=== PATIENT | male | born 1950 | race Caucasian/White ===

== ENCOUNTER 2018-07-19 11:52 | Emergency (ER) | payer MEDICARE, OTHER ==
--- NOTE | 2018-07-19 12:58 | ER Document Report ---
ED General - General Chief Complaint: Facial Injury Stated Complaint: FACE PAIN Time Seen by Provider: 07/19/18 12:01 Notes: Patient with a history of right-sided trigeminal neuralgia for many years, currently under the care of Dr. Kenny at [facility]. Complaining of severe pain of the right side of his face this morning. EMS was called and they gave the patient 100 mcg of fentanyl IV and 4 mg of Zofran and the patient got considerable relief of his pain. Patient has had surgery several times and gets temporary relief, the last time for a couple of years but then it flares back up, as it has been for the past couple of weeks, occurring an average of every other day. He just saw Dr. Kenny at [facility] a week ago who adjusted his medications by increasing his Trileptal to 3 times a day from usual 2 times a day. Patient also taking Cymbalta, gabapentin, Keppra, and 15 mg morphine pills for his condition. They sometimes do not seem to help and that is why EMS was called. Patient had a biopsy of lesions on his forehead earlier this morning. Band-Aid is currently in place there. Has not been sick in any other way recently. No nausea or vomiting. No fevers. TRAVEL OUTSIDE OF THE [place] IN LAST 30 DAYS: No - Related Data Allergies/Adverse Reactions: No Known Allergies Allergy (Verified 05/25/16 11:22) Past Medical History - Social History Smoking Status: Current Every Day Smoker Family History: Reviewed & Not Pertinent Patient has suicidal ideation: No Patient has homicidal ideation: No - Past Medical History Cardiac Medical History: Reports: Hx Hypercholesterolemia Past Surgical History: Reports: Other - Multiple surgeries for his trigeminal neuralgia. His - Immunizations Hx Diphtheria, Pertussis, Tetanus Vaccination: Yes Review of Systems - Review of Systems Notes: REVIEW OF SYSTEMS: CONSTITUTIONAL : Denies fever. Appears comfortable at this time. EENT: Denies eye, ear, nose or mouth or throat pain or other symptoms. CARDIOVASCULAR: Denies chest pain. RESPIRATORY: Denies cough, chest congestion, or shortness of breath. GASTROINTESTINAL: Denies abdominal pain or nausea, vomiting, or diarrhea. GENITOURINARY: Denies difficulty or painful urinating, urinary frequency, blood in urine. MUSCULOSKELETAL: Denies back or neck pain. Denies joint pain or swelling. SKIN: Denies rash or skin lesions. NEUROLOGICAL: Denies LOC or altered mental status. Denies headache. Denies sensory loss or motor deficits. ALL OTHER SYSTEMS REVIEWED AND NEGATIVE. Physical Exam - Vital signs Vitals: Temp Pulse BP Pulse Ox 98.6 F 93 147/72 H 97 07/19/18 12:01 07/19/18 12:01 07/19/18 12:01 07/19/18 12:01 Interpretation: Normal Notes: PHYSICAL EXAMINATION: GENERAL: Well-appearing, in no acute distress. Vital signs are all essentially normal. HEAD: Atraumatic, normocephalic. Patient has a bandage in the right frontal scalp region where he just had a lesion biopsied earlier this morning. EYES: Pupils equal round and reactive to light, extraocular movements intact. ENT: oropharynx clear without exudates. Moist mucous membranes. NECK: Normal range of motion, supple. LUNGS: Breath sounds clear and equal bilaterally. HEART: Regular rate and rhythm without murmurs. ABDOMEN: Soft, nontender. No guarding or rebound. No masses. BACK: No tenderness throughout entire back. EXTREMITIES: Normal range of motion without pain. NEUROLOGICAL: Normal speech, normal gait. Normal sensory, motor, and reflex exams. Awake, alert, and oriented x3. Cranial nerves normal. PSYCH: Normal mood, normal affect. SKIN: Warm, dry, no rashes. Course - Re-evaluation Re-evalutation: 07/19/18 20:06 After patient had been discharged, patient's neurologist, Dr. Kenny, at [facility], called me and we talked over the situation. I told him I had given the patient a prescription for a dozen Dilaudid tablets to try as an alternative to the morphine and he seems satisfied with that plan. - Vital Signs Vital signs: Temp Pulse Resp BP Pulse Ox 98.6 F 94 18 174/80 H 100 07/19/18 12:01 07/19/18 15:13 07/19/18 15:13 07/19/18 15:13 07/19/18 15:13 Discharge - Discharge Clinical Impression: Trigeminal neuralgia Condition: Stable Disposition: HOME, SELF-CARE Additional Instructions: Trigeminal Neuralgia Trigeminal neuralgia is sharp, intermittent pain in the face. It's one- sided, and can involve forehead, cheek, jaw, or all three. Usually the pain occurs abruptly, lasts a few seconds, goes away, then comes back in a minute or so. Touching a "trigger zone" can provoke an attack. Trigeminal neuralgia is considered a "nerve seizure." Sometimes we can find a treatable cause, such as nerve irritation, tumor, infection, or poor blood flow to the nerve. When attacks are severe or occur frequently, we try anti seizure medicine. Call the doctor if there are new symptoms, such as loss of vision, weakness , numbness of other areas, vomiting, or severe headache. PAIN MEDICATION INJECTION: You have received an injection of a pain medication. You should experience significant pain relief within 45 minutes. This drug is a narcotic - - it will impair your judgement, slow your reaction time and make you sleepy ( as well as relieve your pain). Narcotics also can cause nausea. You should not drive, work with machinery, or perform any task requiring mental alertness until all effects of the medication are gone -- six to eight hours. Do not take any alcohol, or sedatives, and do not take any other medication without checking with your physician. Oral Narcotic Medication You have been given a prescription for pain control. This medication is a narcotic. It's best taken with food, as nausea can result if taken on an empty stomach. Don't operate machinery or drive within six hours of taking this medication. Do not combine this medicine with alcohol, or with any medication which can cause sedation (such as cold tablets or sleeping pills) unless you get permission from the physician. Narcotics tend to cause constipation. If possible, drink plenty of fluids and eat a diet high in fiber and fruits. ANTINAUSEA MEDICATION: You have been given a medication to suppress nausea and vomiting. This type of medication can be given as a shot, pill, or suppository. It will usually last for many hours. Pills and shots usually last six to eight hours, suppositories last about 12 hours. For the typical illness, only one or two doses of the medication may be necessary. Mild lightheadedness may occur. This type of medicine can cause drowsiness. Do not drive or operate dangerous machinery while under its influence. Do not mix with alcohol. See your doctor at once if you have muscle spasms or tightness, or uncontrollable motions (particularly of the neck, mouth, or jaw). Persistent vomiting or severe lightheadedness should also be evaluated by the physician. FOLLOW-UP CARE: If you have been referred to a physician for follow-up care, call the physician s office for an appointment as you were instructed or within the next two days. If you experience worsening or a significant change in your symptoms, notify the physician immediately or return to the Emergency Department at any time for re-evaluation. Prescriptions: Hydromorphone HCl [Dilaudid 2 mg Tablet] 2 mg PO Q6HP PRN #12 tablet PRN Reason: Ondansetron [Zofran Odt 4 mg Tablet] 1 - 2 tab PO Q4H PRN #15 tab.rapdis PRN Reason: For Nausea/Vomiting
--- NOTE | 2018-07-19 13:16 | RADIOLOGY REPORT (SQ) ---
EXAM DESCRIPTION: CT HEAD WITHOUT COMPLETED DATE/TIME: 07/19/2018 1:05 pm REASON FOR STUDY: HX right trigeminal neuralgia, severe pain COMPARISON: None. TECHNIQUE: Axial images acquired through the brain without intravenous contrast. Images reviewed wi th bone, brain and subdural windows. Images stored on PACS. All CT scanners at this facility use dose modulation, iterative reconstruction, and/or weight based d osing when appropriate to reduce radiation dose to as low as reasonably achievable (ALARA). [facility]: Dose Right [facility]: CareDose [facility]: Dose Right [facility]: Teradose 4D [facility]: Smart [employer] RADIATION DOSE: CT Rad equipment meets quality standard of care and radiation dose reduction techniq ues were employed. CTDIvol: 53.2 mGy. DLP: 1070 mGy-cm. mGy. LIMITATIONS: None. FINDINGS: VENTRICLES: Normal size and contour. CEREBRUM: No masses. No hemorrhage. No midline shift. No evidence for acute infarction. Normal gra y/white matter differentiation. No areas of low density in the white matter. CEREBELLUM: No masses. No hemorrhage. No alteration of density. No evidence for acute infarction. EXTRAAXIAL SPACES: No fluid collections. No masses. ORBITS AND GLOBE: No intra- or extraconal masses. Normal contour of globe without masses. CALVARIUM: No fracture. PARANASAL SINUSES: No fluid or mucosal thickening. SOFT TISSUES: No mass or hematoma. OTHER: No other significant finding. IMPRESSION: No acute intracranial pathology. The trigeminal nerves are not well evaluated by CT ; c onsider trigeminal protocol MRI to further evaluate if desired. EVIDENCE OF ACUTE STROKE: NO. COMMENT: Quality ID # [id number]: Final reports with documentation of one or more dose reduction techniques (e.g., Automated exposure control, adjustment of the mA and/or kV according to patient size, use of iterative reconstruction technique) TECHNICAL DOCUMENTATION: JOB ID: [id number] [employer]- All Rights Reserved Reading location - IP/workstation name: [email or web address]
[2018-07-19 15:13] VITALS: BP 174/80
== END 2018-07-19 15:14 | disposition home or self-care (01) ==
LOC: ER 11:52
DX: G50.0 Trigeminal neuralgia (principal); E78.00 Pure hypercholesterolemia, unspecified; F17.200 Nicotine dependence, unspecified, uncomplicated
CPT/HCPCS: 70450; 99284

== ENCOUNTER 2019-01-13 15:58 | Emergency (ER) | payer OTHER, MEDICARE ==
--- NOTE | 2019-01-13 16:55 | ER Document Report ---
ED General - General TRAVEL OUTSIDE OF THE [place].S. IN LAST 30 DAYS: No <HAROON ARROYO - Last Filed: 01/13/19 19:46> <SELWYN ORTIZ - Last Filed: 01/13/19 20:32> - General Chief Complaint: Back Pain Stated Complaint: PAIN Time Seen by Provider: 01/13/19 16:31 [facility] [[facility]] - Follow up as needed Notes: 68-year-old male with history of right-sided trigeminal neuralgia since 1999 currently under the care of Dr. Kenny at [place] presents by EMS to the emergency department for severe pain of the right side of his face since approximately 2:00 this afternoon. In route he received ketamine 15 mg. Just prior to EMS arriving he took morphine p.o. 15 mg every 5 minutes for total of 45 mg total. After receiving the ketamine he reported significant relief and arrives here conversing in full sentences but tachycardic. Patient is on several medications with the newest addition being Keppra 1000 mg p.o. 2 times per day. Patient denies any vision changes, dizziness or lightheadedness, confusion, neck stiff ness, nausea or vomiting, shortness of breath or chest pain, abdominal pain, or any other concerning symptoms. (HAROON ARROYO) - Related Data Allergies/Adverse Reactions: No Known Allergies Allergy (Verified 05/25/16 11:22) Past Medical History - Social History Smoking Status: Current Every Day Smoker Chew tobacco use (# tins/day): No Frequency of alcohol use: None Drug Abuse: None Family History: Reviewed & Not Pertinent Patient has suicidal ideation: No Patient has homicidal ideation: No - Past Medical History Cardiac Medical History: Reports: Hx Hypercholesterolemia Denies: Hx Heart Attack, Hx Hypertension Pulmonary Medical History: Denies: Hx Tuberculosis Endocrine Medical History: Denies: Hx Diabetes Mellitus Type 1, Hx Diabetes Mellitus Type 2 Renal/ Medical History: Denies: Hx Peritoneal Dialysis Past Surgical History: Reports: Other - Multiple surgeries for his trigeminal neuralgia. His. Denies: Hx Pacemaker - Immunizations Hx Diphtheria, Pertussis, Tetanus Vaccination: Yes <HAROON ARROYO - Last Filed: 01/13/19 19:46> Review of Systems - Review of Systems Constitutional: See HPI EENT: See HPI Cardiovascular: See HPI Respiratory: See HPI Gastrointestinal: No symptoms reported Genitourinary: No symptoms reported Male Genitourinary: No symptoms reported Musculoskeletal: No symptoms reported Skin: No symptoms reported Hematologic/Lymphatic: No symptoms reported Neurological/Psychological: See HPI <[email or web address] - Last Filed: 01/13/19 19:46> Physical Exam <HAROON ARROYO - Last Filed: 01/13/19 19:46> - Vital signs Vitals: Pulse Ox 94 01/13/19 16:09 - Notes Notes: PHYSICAL EXAMINATION: Reviewed vital signs and charting by RN GENERAL: Alert, interacts well. No acute distress. HEAD: Normocephalic, atraumatic. EYES: Pupils equal, round, and reactive to light. Extraocular movements intact. ENT: Oral mucosa moist, tongue midline. NECK: Full range of motion. Supple. Trachea midline. LUNGS: Clear to auscultation bilaterally, no wheezes, rales, or rhonchi. No respiratory distress. HEART: Regular rate and rhythm. No murmur ABDOMEN: soft, non-tender. No distention. Bowel sounds present EXTREMITIES: Moves all 4 extremities spontaneously. No edema, No cyanosis. PSYCH: Normal affect, normal mood. SKIN: Warm, dry, normal turgor. No rashes or lesions noted. (HAROON ARROYO) Course - Laboratory Result Diagrams: 01/13/19 16:33 01/13/19 16:55 <HAROON ARROYO - Last Filed: 01/13/19 19:46> - Laboratory Result Diagrams: 01/13/19 16:33 01/13/19 16:55 <SELWYN ORTIZ - Last Filed: 01/13/19 20:32> - Re-evaluation Re-evalutation: 01/13/19 16:54 No acute distress. Patient states his pain is very minimal at this time. He is tachycardic currently at 110, I suspect this is secondary to the ketamine injection as his pain level is significantly lower. I will get an EKG and some basic labs and monitor him for short period of time and support him with pain control as needed. 01/13/19 19:00 Gave patient normal saline 1 L because he has been persistently tachycardic. EKG showed sinus tachycardia with no evidence of demand ischemia. Shortly after I went into patient's room and he was writhing in pain. states he was having another attack. Given Dilaudid 1 mg one time and he got immediate relief. 01/13/19 19:01 01/13/19 19:46 Spoke with patient difficult time explaining the instructions. Discussed with Dr. Fowler and he went in the room and spoke with the patient. Clarify that the patient is pain-free right now but he is tachycardic and there is probably an anxiety component with this. Plan is to give him a Solu-Medrol 125 mg IV 1 time now, Percocet 5325 2 pills p.o. now, and Robaxin 500 mg p.o. 1 time now. Aury give him a prescription for prednisone 40 mg daily for 5 days and a prescription for Robaxin 500 mg twice daily as needed p.o. At this time the patient is tachycardic but states that he always has a fast heart rate during these episodes and afterwards due to the anxiety. At this time patient is stable and denies pain and is okay to discharge home. (HAROON ARROYO) 68-year-old man with a complicated history of trigeminal neuralgia, long history of COPD (still smoking) who presented to the emergency room with an acute exacerbation of his trigeminal neuralgia. Patient was given pain medicines and is improved. He is concerned about going home and being in pain. He does state that he has had steroids in the past which is helped. We will add a short cours e of steroids to his regimen along with some muscle relaxer and he is already on a pain medicine. I have advised him to follow-up with Dr. Kenny who is his neurologist and [place]. Currently, physical exam: HEENT normocephalic, atraumatic Lungs, diffuse rhonchi bilaterally. No rales. Heart, mild tachycardic, otherwise his lung sounds good. Abdomen soft. Nontender. Extremities: No significant edema 01/13/19 20:30 (SELWYN ORTIZ) - Vital Signs Vital signs: Temp Pulse Resp BP Pulse Ox 99.2 F 118 H 20 168/79 H 90 L 01/13/19 16:24 01/13/19 16:24 01/13/19 19:01 01/13/19 19:01 01/13/19 19:01 - Laboratory Laboratory results interpreted by me: 01/13/19 01/13/19 16:33 16:55 RDW 14.5 H Plt Count 513 H Glucose 113 H ALT 14 L Discharge <HAROON ARROYO - Last Filed: 01/13/19 19:46> <SELWYN ORTIZ - Last Filed: 01/13/19 20:32> - Discharge Clinical Impression: Trigeminal neuralgia of right side of face Condition: Good Disposition: HOME, SELF-CARE Additional Instructions: You were seen in the emergency department this evening for a trigeminal neuralgia attack. We control your pain with narcotic medication. We have given you Percocet 2 pills to help "bridge you" taking at home. We have also given you a dose of IV steroids that will help with inflammation to calm down the muscles around the nerve that will kick in about 6 hours. Also, we gave you a muscle relaxer to help relax the muscles around the nerve. You are still okay to take your immediate release morphine as needed if you have an acute attack. Please return to the emergency department if you have severe unremitting symptoms, severe chest pain, severe shortness of breath, or any other concerning symptoms. Prescriptions: Methocarbamol [Robaxin] 500 mg PO BID PRN #14 tablet PRN Reason: Prednisone [Deltasone 20 mg Tablet] 2 tab PO DAILY 5 Days tablet [facility]errals: [facility] [[facility]] - Follow up as needed
[2019-01-13 17:26] LABS: ABSOLUTE BASOPHILS # (AUTO) 0.1 10^3/uL (0.0-0.2); ABSOLUTE EOSINOPHILS # (AUTO) 0.1 10^3/uL (0.0-0.6); ABSOLUTE LYMPHOCYTES (AUTO) 1.4 10^3/uL (0.5-4.7); ABSOLUTE MONOCYTES (AUTO) 0.6 10^3/uL (0.1-1.4); ABSOLUTE NEUT (AUTO) 7.3 10^3/uL (1.7-8.2); BASOPHILS % (AUTO) 0.8 % (0-2); EOSINOPHILS % (AUTO) 0.8 % (0-6); HEMATOCRIT 42.3 % (37.9-51.0); HEMOGLOBIN 14.3 g/dL (13.5-17.0); LYMPHOCYTES % (AUTO) 14.9 % (13-45); MEAN CORPUSCULAR HEMOGLOBIN 30.1 pg (27.0-33.4); MEAN CORPUSCULAR HGB CONC 33.8 g/dL (32.0-36.0); MEAN CORPUSCULAR VOLUME 89 fl (80-97); MONOCYTES % (AUTO) 6.6 % (3-13); RED BLOOD COUNT 4.74 10^6/uL (4.35-5.55); RED CELL DISTRIBUTION WIDTH 14.5 % (11.5-14.0); SEGMENTED NEUTROPHILS % (AUTO) 76.9 % (42-78); TOTAL CELLS COUNTED % (AUTO) 100 %; WHITE BLOOD COUNT 9.5 10^3/uL (4.0-10.5)
--- NOTE | 2019-01-13 17:34 | EKG REPORT ---
SEVERITY:- ABNORMAL ECG - SINUS TACHYCARDIA LEFT ANTERIOR FASCICULAR BLOCK : Confirmed by: Joy Andrade MD 13-Jan-2019 17:33:24
[2019-01-13 17:41] LABS: ALANINE AMINOTRANSFERASE 14 U/L (21-72); ALBUMIN 3.6 g/dL (3.5-5.0); ALKALINE PHOSPHATASE 82 U/L (38-126); ANION GAP 9 (5-19); ASPARTATE AMINO TRANSFERASE 20 U/L (17-59); BILIRUBIN,DIRECT 0.3 mg/dL (0.0-0.4); BILIRUBIN,TOTAL 0.4 mg/dL (0.2-1.3); BLOOD UREA NITROGEN 11 mg/dL (7-20); CALCIUM 8.9 mg/dL (8.4-10.2); CARBON DIOXIDE 26 mmol/L (22-30); CHLORIDE 103 mmol/L (98-107); GLUCOSE 113 mg/dL (75-110); POTASSIUM 4.9 mmol/L (3.6-5.0); SODIUM 137.9 mmol/L (137-145); TOTAL PROTEIN 6.4 g/dL (6.3-8.2)
[2019-01-13 17:46] LABS: PLATELET COUNT 513 10^3/uL (150-450)
[2019-01-13] MEDS ORDERED: NORMAL SALINE 1000 ML 1,000 ML IV ONE (17:55)
[2019-01-13] MEDS ORDERED: FENTANYL CITRATE INJ/PF 100 MCG/2 ML AMPUL IV ONE (18:17)
[2019-01-13] MEDS ORDERED: HYDROMORPHONE HCL INJ/PF 2 MG/ML AMPULE IV ONE (18:48)
[2019-01-13] MEDS ORDERED: HYDROMORPHONE HCL INJ/PF 2 MG/ML AMPULE ONE (18:49)
[2019-01-13] MEDS ORDERED: LORAZEPAM INJ 2 MG/1 ML VIAL IV ONE (19:28)
[2019-01-13] MEDS ORDERED: METHOCARBAMOL 500 MG TABLET PO ONE (19:43)
[2019-01-13] MEDS ORDERED: HYDROCORTISONE SOD SUCCINATE INJ/PF 250 MG/2 ML SDV IV ONE (19:44)
[2019-01-13] MEDS ORDERED: OXYCODONE-ACETAMINOPHEN 5-325 MG TABLET PO ONE (19:44)
[2019-01-13] MEDS ORDERED: METHYLPREDNISOLONE INJ 125 MG/2 ML SDV ONE (20:01)
[2019-01-13] MEDS ORDERED: HYDROCORTISONE SOD SUCCINATE INJ/PF 250 MG/2 ML SDV ONE (20:10)
[2019-01-13 20:37] VITALS: BP 131/73
== END 2019-01-13 20:37 | disposition home or self-care (01) ==
LOC: ER 15:58
DX: G50.0 Trigeminal neuralgia (principal); Z79.899 Other long term (current) drug therapy; R00.0 Tachycardia, unspecified; J44.9 Chronic obstructive pulmonary disease, unspecified; F17.200 Nicotine dependence, unspecified, uncomplicated
CPT/HCPCS: 93005; 99284; 96361; 96374; 96375; 36415; 85025; 80053; 93010; J3010; J1720; J1170; J2060; J7030; J2930

== ENCOUNTER 2019-02-11 22:33 | Emergency (ER) | payer OTHER, MEDICARE ==
--- NOTE | 2019-02-11 23:08 | ER Document Report ---
ED General - General Stated Complaint: FACIAL FLARE UP Time Seen by Provider: 02/11/19 23:08 Primary Care Provider: VEDA RIBERA [Primary Care Provider] - Follow up in 3-5 days Notes: Patient is a 68-year-old male with trigeminal neuralgia that presents to the emergency department for chief complaint of facial pain. Patient states that his pain started getting worse tonight, he does frequently get flareups of his trigeminal neuralgia, is on multiple medications for it and has had multiple surgeries over the years. He described it as a sharp pain on the right side of his face, with some numbness around the area as well. It was a 10 out of 10 pain, he took 30 mg of morphine IR, prior to EMS arrival, they did give him ketamine in route, at this time he is feeling much better, he states his pain is essentially 0 he has a little bit of numbness on the right face, which is typical of his trigeminal neuralgia attacks. He denies any recent fevers, chills, night sweats, chest pain, shortness of breath, difficulty breathing, denies any headache at this time, denies any visual changes or blurred vision. Past Medical History: Trigeminal neuralgia Past Surgical History: Multiple surgeries for trigeminal neuralgia Social History: Admits to smoking cigarettes, denies alcohol or drug use. Family History: Reviewed and noncontributory for presenting illness Allergies: Reviewed, see documented allergy list. REVIEW OF SYSTEMS: Other than noted above, the 12 point review of systems was reviewed with the patient and were negative, all pertinent findings are included in the HPI. PHYSICAL EXAMINATION: Vital signs reviewed, nursing noted reviewed. GENERAL: Elderly male, appears comfortable on exam HEAD: Atraumatic, normocephalic. EYES: Eyes appear normal, extraocular movements intact, sclera anicteric, conjunctiva are normal. ENT: nares patent, oropharynx clear without exudates. Moist mucous membranes. Slightly decreased sensation over the right cheek, compared to the left, no tenderness to palpation over the face. NECK: Normal range of motion, supple without lymphadenopathy LUNGS: Breath sounds clear to auscultation bilaterally and equal. No wheezes rales or rhonchi. HEART: Regular rate and rhythm without murmurs ABDOMEN: Soft, nontender, normoactive bowel sounds. No rebound, guarding, or rigidity. No masses appreciated. EXTREMITIES: Nontender, good range of motion, no pitting or edema. NEUROLOGICAL: No focal neurological deficits. Moves all extremities spontaneously Motor and sensory grossly intact on exam. PSYCH: Normal mood, normal affect. SKIN: Warm, Dry, normal turgor, no rashes or lesions noted on exposed skin TRAVEL OUTSIDE OF THE [place] IN LAST 30 DAYS: No - Related Data Allergies/Adverse Reactions: No Known Allergies Allergy (Verified 05/25/16 11:22) Past Medical History - Social History Smoking Status: Current Every Day Smoker Family History: Reviewed & Not Pertinent - Past Medical History Cardiac Medical History: Reports: Hx Hypercholesterolemia Denies: Hx Heart Attack, Hx Hypertension Pulmonary Medical History: Denies: Hx Tuberculosis Endocrine Medical History: Denies: Hx Diabetes Mellitus Type 1, Hx Diabetes Mellitus Type 2 Renal/ Medical History: Denies: Hx Peritoneal Dialysis Past Surgical History: Reports: Other - Multiple surgeries for his trigeminal neuralgia. His. Denies: Hx Pacemaker - Immunizations Hx Diphtheria, Pertussis, Tetanus Vaccination: Yes Physical Exam - Vital signs Vitals: Temp Pulse Resp BP Pulse Ox 98.1 F 103 H 16 137/67 H 93 02/11/19 22:57 02/11/19 22:57 02/11/19 22:57 02/11/19 22:57 02/11/19 22:57 Course - Re-evaluation Re-evalutation: Patient seen and examined vital signs reviewed. Patient was evaluated and treated as appropriate for the patient's presenting symptoms and complaint, with consideration of any critical or life threatening conditions that may be associated with their obtained history and exam as noted above. Patient was treated with IV Solu-Medrol, was already treated with IV ketamine by EMS. The patient was re-evaluated and was stable, and much improved Evaluation was most consistent with trigeminal neuralgia pain, prescribed the patient prednisone for 5 additional days, he does have an upcoming appointment with his neurologist today, and advised to keep this appointment. Plan of care was discussed with the patient at this point, after careful consideration I feel that that patient can be discharged from the emergency department, the patient was educated treatments and reasons to return to the e mergency department based on their presumed diagnosis as noted above, they were advised to followup with a primary care physician in 2-3 days. Patient was agreeable to plan of care. *Note is created using voice recognition software and may contain spelling, syntax or grammatical errors. - Vital Signs Vital signs: Temp Pulse Resp BP Pulse Ox 98.0 F 96 15 135/67 H 99 02/12/19 01:20 02/12/19 01:20 02/12/19 01:20 02/12/19 01:20 02/12/19 01:20 Discharge - Discharge Clinical Impression: Trigeminal neuralgia pain Condition: Stable Disposition: HOME, SELF-CARE Instructions: Trigeminal Neuralgia ([facility]) Additional Instructions: Please follow-up with your neurologist tomorrow, take all your previous medications as directed, you can take the prescribed prednisone as well, for the next 5 days. Prescriptions: RX: Prednisone [Deltasone 10 mg Tablet] 40 mg PO DAILY #20 tablet [facility]errals: [facility] [[facility]] - Follow up in 3-5 days
[2019-02-11] MEDS ORDERED: METHYLPREDNISOLONE INJ 125 MG/2 ML SDV IV ONE (23:25)
[2019-02-11] MEDS ORDERED: METHOCARBAMOL 500 MG TABLET PO ONE (23:25)
[2019-02-12 01:22] VITALS: BP 135/67
== END 2019-02-12 01:20 | disposition home or self-care (01) ==
LOC: ER 22:33
DX: G50.0 Trigeminal neuralgia (principal); F17.210 Nicotine dependence, cigarettes, uncomplicated; E78.00 Pure hypercholesterolemia, unspecified
CPT/HCPCS: 99283; 96374; J2930

== ENCOUNTER 2019-10-03 11:04 | Inpatient (IN) | payer OTHER, MEDICARE ==
[2019-10-03 11:36] LABS: ABSOLUTE BASOPHILS # (AUTO) 0.1 10^3/uL (0.0-0.2); ABSOLUTE EOSINOPHILS # (AUTO) 0.2 10^3/uL (0.0-0.6); ABSOLUTE LYMPHOCYTES (AUTO) 1.9 10^3/uL (0.5-4.7); ABSOLUTE MONOCYTES (AUTO) 0.6 10^3/uL (0.1-1.4); ABSOLUTE NEUT (AUTO) 5.4 10^3/uL (1.7-8.2); BASOPHILS % (AUTO) 0.7 % (0-2); EOSINOPHILS % (AUTO) 2.3 % (0-6); HEMATOCRIT 47.6 % (37.9-51.0); HEMOGLOBIN 15.9 g/dL (13.5-17.0); LYMPHOCYTES % (AUTO) 23.4 % (13-45); MEAN CORPUSCULAR HEMOGLOBIN 31.2 pg (27.0-33.4); MEAN CORPUSCULAR HGB CONC 33.4 g/dL (32.0-36.0); MEAN CORPUSCULAR VOLUME 93 fl (80-97); MONOCYTES % (AUTO) 7.7 % (3-13); PLATELET COUNT 548 10^3/uL (150-450); RED BLOOD COUNT 5.11 10^6/uL (4.35-5.55); RED CELL DISTRIBUTION WIDTH 13.8 % (11.5-14.0); SEGMENTED NEUTROPHILS % (AUTO) 65.9 % (42-78); TOTAL CELLS COUNTED % (AUTO) 100 %; WHITE BLOOD COUNT 8.3 10^3/uL (4.0-10.5)
[2019-10-03 11:59] LABS: ALBUMIN 4.2 g/dL (3.5-5.0); ALKALINE PHOSPHATASE 112 U/L (38-126); ANION GAP 10 (5-19); ASPARTATE AMINO TRANSFERASE 18 U/L (17-59); BILIRUBIN,DIRECT 0.2 mg/dL (0.0-0.4); BILIRUBIN,TOTAL 0.5 mg/dL (0.2-1.3); BLOOD UREA NITROGEN 14 mg/dL (7-20); CALCIUM 9.2 mg/dL (8.4-10.2); CARBON DIOXIDE 31 mmol/L (22-30); CHLORIDE 101 mmol/L (98-107); GLUCOSE 102 mg/dL (75-110); POTASSIUM 4.3 mmol/L (3.6-5.0); TOTAL PROTEIN 7.3 g/dL (6.3-8.2)
--- NOTE | 2019-10-03 12:15 | RADIOLOGY REPORT (SQ) ---
EXAM DESCRIPTION: CT HEAD WITHOUT COMPLETED DATE/TIME: 10/03/2019 10:54 am REASON FOR STUDY: dizziness COMPARISON: CT head, 07/19/2018 TECHNIQUE: Axial images acquired through the brain without intravenous contrast. Images reviewed wi th bone, brain and subdural windows. Images stored on PACS. All CT scanners at this facility use dose modulation, iterative reconstruction, and/or weight based d osing when appropriate to reduce radiation dose to as low as reasonably achievable (ALARA). [facility]: Dose Right [facility]: CareDose [facility]: Dose Right [facility]: Teradose 4D [facility]: [employer] RADIATION DOSE: CT Rad equipment meets quality standard of care and radiation dose reduction techniq ues were employed. CTDIvol: 53.2 mGy. DLP: 991 mGy-cm. mGy. LIMITATIONS: None. FINDINGS: VENTRICLES: Moderate prominence of the ventricles and sulci, consistent with moderate cere bral and cerebellar atrophy. No evidence of hydrocephalus or herniation. CEREBRUM: No masses. No hemorrhage. No midline shift. No evidence for acute infarction. Mild patch y periventricular and deep white matter hypodense attenuation consistent with mild chronic small vess el ischemic change. There is intracranial atherosclerosis. CEREBELLUM: No masses. No hemorrhage. No alteration of density. No evidence for acute infarction. EXTRAAXIAL SPACES: No fluid collections. No masses. ORBITS AND GLOBE: No intra- or extraconal masses. Normal contour of globe without masses. CALVARIUM: No fracture. PARANASAL SINUSES: Minimal polypoid mucosal thickening medial right maxillary sinus. No fluid or muc osal thickening. SOFT TISSUES: No mass or hematoma. OTHER: No other significant finding. IMPRESSION: 1. No acute intracranial hemorrhage, mass, or evidence of acute territorial infarct. 2. Mild chronic small vessel ischemic change. 3. Moderate cerebral and cerebellar atrophy. 4. Intracranial atherosclerosis. EVIDENCE OF ACUTE STROKE: NO. COMMENT: Quality ID # [id number]: Final reports with documentation of one or more dose reduction techniques (e.g., Automated exposure control, adjustment of the mA and/or kV according to patient size, use of iterative reconstruction technique) TECHNICAL DOCUMENTATION: JOB ID: [id number] 2010 [employer]- All Rights Reserved Reading location - IP/workstation name: [email or web address]
[2019-10-03 12:36] LABS: APPEARANCE,URINE CLOUDY; BILIRUBIN,URINE NEGATIVE (NEGATIVE); GLUCOSE, URINE NEGATIVE (NEGATIVE); KETONES,URINE NEGATIVE (NEGATIVE); LEUKOCYTE ESTERASE,URINE LARGE (NEGATIVE); NITRITE,URINE POSITIVE (NEGATIVE); PROTEIN,URINE 100 mg/dL (NEGATIVE); URINE SPECIFIC GRAVITY 1.025; UROBILINOGEN,URINE NEGATIVE mg/dL (<2.0)
[2019-10-03 12:39] LABS: COLOR,URINE DARK YELLOW
--- NOTE | 2019-10-03 12:39 | RADIOLOGY REPORT (SQ) ---
EXAM DESCRIPTION: CHEST SINGLE VIEW COMPLETED DATE/TIME: 10/03/2019 10:58 am REASON FOR STUDY: HTNertension COMPARISON: None. EXAM PARAMETERS: NUMBER OF VIEWS: One view. TECHNIQUE: Single frontal radiographic view of the chest acquired. RADIATION DOSE: NA LIMITATIONS: None. FINDINGS: LUNGS AND PLEURA: No opacities, masses or pneumothorax. No pleural effusion. MEDIASTINUM AND HILAR STRUCTURES: No masses. Contour normal. HEART AND VASCULAR STRUCTURES: There is mild moderate cardiomegaly. No pulmonary edema. BONES: No acute findings. HARDWARE: None in the chest. OTHER: No other significant finding. IMPRESSION: NO ACUTE RADIOGRAPHIC FINDING IN THE CHEST. TECHNICAL DOCUMENTATION: JOB ID: [id number] 2011 [employer]- All Rights Reserved Reading location - IP/workstation name: [email or web address]
[2019-10-03] MEDS ORDERED: CEFTRIAXONE 1 GM/D5W RTU 1 GM/50 ML RTUPB IV ONE (13:14)
--- NOTE | 2019-10-03 13:27 | ER Document Report ---
Entered by GAYLE GOODSON SCRIBE 10/03/19 1133 Acting as scribe for:OMKAR LEGGETT DO ED General - General Chief Complaint: Weakness Stated Complaint: GENERAL WEAKNESS [facility] Care Provider[facility] [[facility]] - Follow up as needed Mode of Arrival: Medic Information source: Patient, Emergency Med Personnel Cannot obtain history due to: Altered mental status Notes: This 69 year old male patient presents to the emergency department today with complaints of altered mental status. EMS reports they were called by the f or concerns of increased generalized weakness as well as confusion. is not here, but EMS reports that she told them that he has had several recent medication changes and these symptoms seem to correlate with those changes. EMS is not sure what medications were changed. Patient is confused and is a very poor historian so history is limited. Patient does deny any cough, fevers, or urinary symptoms. Patient does not really have any complaints. TRAVEL OUTSIDE OF THE [place] IN LAST 30 DAYS: No - Related Data Allergies/Adverse Reactions: No Known Allergies Allergy (Verified 05/25/16 11:22) Past Medical History - General Information source: Patient, [facility] Records Cannot obtain history due to: Altered mental status - Social History Smoking Status: Current Every Day Smoker Cigarette use (# per day): Yes Frequency of alcohol use: None Drug Abuse: None Occupation: retired Lives with: Spouse/Significant other Family History: Reviewed & Not Pertinent Patient has suicidal ideation: No Patient has homicidal ideation: No - Past Medical History Cardiac Medical History: Reports: Hx Hypercholesterolemia Past Surgical History: Reports: Hx Neurologic Surgery - Multiple surgeries for his trigeminal neuralgia. - Immunizations Hx Diphtheria, Pertussis, Tetanus Vaccination: Yes Review of Systems - Review of Systems -: Yes ROS unobtainable due to patient's medical condition - patient confused, EMS reported they were called for altered mental status Physical Exam - Vital signs Vitals: Pulse Resp BP Pulse Ox 85 15 133/73 H 96 10/03/19 11:20 10/03/19 11:20 10/03/19 11:20 10/03/19 11:20 - Notes Notes: Physical Exam: General: Alert, appears unkempt and disheveled. HEENT: Normocephalic. Atraumatic. PERRL. Extraocular movements intact. Oropharynx clear. Neck: Supple. Non-tender. Respiratory: No respiratory distress. Clear and equal breath sounds bilaterally. Cardiovascular: Regular rate and rhythm. Abdominal: Normal Inspection. Non-tender. No distension. Normal Bowel Sounds. Back: No gross abnormalities. Extremities: Moves all four extremities. Upper extremities: Normal inspection. Normal ROM. Lower extremities: Normal inspection. No edema. Normal ROM. Neurological: Confused but redirectable. Normal speech. Skin: Warm. Dry. Normal color. Course - Re-evaluation Re-evalutation: 10/03/19 13:27 MDM 69 year old male arrives with increased weakness and poor functioning over the past week. He is disabled from Trigeminal Neuralgia and he lives at home with his . Neurology and [facility] at [facility] have participated in his care in the past. Can not stand or walk at this time. That is abnormal for him according to his . I have discussed with Dr. Willis and she has graciously agreed to accept the pt as an admission. - Vital Signs Vital signs: Temp Pulse Resp BP Pulse Ox 98.6 F 85 22 H 106/63 93 10/03/19 13:04 10/03/19 11:20 10/03/19 13:01 10/03/19 13:00 10/03/19 13:01 - Laboratory Result Diagrams: 10/03/19 11:15 10/03/19 11:15 Laboratory results interpreted by me: 10/03/19 10/03/19 10/03/19 11:15 11:15 12:00 Plt Count 548 H Carbon Dioxide 31 H Magnesium 2.5 H Urine Protein 100 H Urine Blood SMALL H Urine Nitrite POSITIVE H Ur Leukocyte Esterase LARGE H Discharge - Discharge Clinical Impression: Altered mental state Condition: Fair Disposition: HOME, SELF-CARE Referrals: [facility] [Primary [facility]] - Follow up as needed I personally performed the services described in the documentation, reviewed and edited the documentation which was dictated to the scribe in my presence, and it accurately records my words and actions.
[2019-10-03] MEDS ORDERED: ACETAMINOPHEN 325 MG TABLET PO PRN (15:11)
[2019-10-03] MEDS ORDERED: IPRATROPIUM/ALBUTEROL 0.5-2.5 MG/3 ML AMPUL NEB PRN (15:11)
--- NOTE | 2019-10-03 15:41 | PDOC H&P ---
History of Present Illness Admission Date/PCP: [facility] Patient complains of: Patient presents emergency room with complaints of confusion. His complained of increased weakness and confusion. By the time I saw the patient he did appear to be at his baseline although in the ER initially it appears he was confused. He denies any chest pain nausea vomiting. History of Present Illness: ANJALI LAUGHLIN is a 69 year old male He was found to have a urinary tract infection in the emergency room and so has been admitted for further management. Patient it appears as had some ongoing neurological issues. He is apparently disabled from trigeminal neuralgia and is followed by neurology at [facility] however this appears to be stable. His main issue is the confusion which could be secondary to the acute cystitis. Work-up in the emergency room is essentially negative except for the urinalysis. He did have a thrombocytosis with a platelet count of 5 48,000. His platelet count was 5 13,000 in January 2019. This will need outpatient follow-up. His electrolytes are grossly intact Past Medical History Cardiac Medical History: Reports: Hyperlipidema Denies: Myocardial Infarction, Hypertension Pulmonary Medical History: Denies: Tuberculosis Endocrine Medical History: Denies: Diabetes Mellitus Type 1, Diabetes Mellitus Type 2 Past Surgical History Past Surgical History: Reports: Other - Multiple surgeries for his trigeminal neuralgia. Denies: Pacemaker Social History Information Source: Relative Lives with: Spouse/Significant other Smoking Status: Current Every Day Smoker Frequency of Alcohol Use: None Hx Recreational Drug Use: No Hx Prescription Drug Abuse: No - Advance Directive Resuscitation Status: Do Not Resuscitate Family History Family History: Reviewed & Not Pertinent Parental Family History Reviewed: No Children Family History Reviewed: Yes Sibling(s) Family History Reviewed.: Unknown Medication/Allergy Allergies/Adverse Reactions: No Known Allergies Allergy (Verified 05/25/16 11:22) Review of Systems Constitutional: PRESENT: weakness. ABSENT: chills, fatigue, night sweats Cardiovascular: ABSENT: chest pain, dyspnea on exertion, edema, orthropnea Gastrointestinal: ABSENT: abdominal pain, heartburn, nausea, vomiting Musculoskeletal: PRESENT: muscle weakness Neurological: PRESENT: abnormal gait, abnormal speech, confusion, focal weakness, weakness Physical Exam Vital Signs: Temp Pulse Resp BP Pulse Ox 98.6 F 85 22 H 106/63 93 10/03/19 13:04 10/03/19 11:20 10/03/19 13:01 10/03/19 13:00 10/03/19 13:01 Intake & Output 10/02/19 10/03/19 10/04/19 06:59 06:59 06:59 Weight 95.254 kg General appearance: PRESENT: no acute distress, cooperative Head exam: PRESENT: atraumatic Neck exam: ABSENT: carotid bruit GI/Abdominal exam: PRESENT: soft. ABSENT: tenderness Rectal exam: PRESENT: deferred Neurological exam: PRESENT: alert, awake, oriented to person, oriented to place, oriented to time, motor sensory deficit Results Laboratory Results: 10/03/19 11:15 10/03/19 11:15 10/03/19 10/03/19 10/03/19 11:15 11:15 11:15 WBC 8.3 RBC 5.11 Hgb 15.9 Hct 47.6 MCV 93 MCH 31.2 MCHC 33.4 RDW 13.8 Plt Count 548 H Seg Neutrophils % 65.9 Sodium 141.6 Potassium 4.3 Chloride 101 Carbon Dioxide 31 H Anion Gap 10 BUN 14 Creatinine 1.10 Est GFR ( Amer) > 60 Glucose 102 Calcium 9.2 Magnesium 2.5 H Total Bilirubin 0.5 AST 18 Alkaline Phosphatase 112 Total Protein 7.3 Albumin 4.2 TSH 1.29 Urine Color Urine Appearance Urine pH Ur Specific [place] Urine Protein Urine Glucose (UA) Urine Ketones Urine Blood Urine Nitrite Ur Leukocyte Esterase Urine WBC (Auto) 10/03/19 12:00 WBC RBC Hgb Hct MCV MCH MCHC RDW Plt Count Seg Neutrophils % Sodium Potassium Chloride Carbon Dioxide Anion Gap BUN Creatinine Est GFR ( Amer) Glucose Calcium Magnesium Total Bilirubin AST Alkaline Phosphatase Total Protein Albumin TSH Urine Color DARK YELLOW Urine Appearance CLOUDY Urine pH 6.0 Ur Specific [place] 1.025 Urine Protein 100 H Urine Glucose (UA) NEGATIVE Urine Ketones NEGATIVE Urine Blood SMALL H Urine Nitrite POSITIVE H Ur Leukocyte Esterase LARGE H Urine WBC (Auto) >182 10/03/19 11:15 Troponin I < 0.012 Impressions: Chest X-Ray 10/03/19 11:29 IMPRESSION: NO ACUTE RADIOGRAPHIC FINDING IN THE CHEST. Head CT 10/03/19 11:30 IMPRESSION: 1. No acute intracranial hemorrhage, mass, or evidence of acute territorial infarct. 2. Mild chronic small vessel ischemic change. 3. Moderate cerebral and cerebellar atrophy. 4. Intracranial atherosclerosis. EVIDENCE OF ACUTE STROKE: NO. Assessment and Plan - Diagnosis (1) UTI (urinary tract infection) Qualifiers: Urinary tract infection type: acute cystitis Is this a current diagnosis for this admission?: Yes Plan: Start Empiric antibiotics and adjust as per culture result (2) Metabolic encephalopathy Is this a current diagnosis for this admission?: Yes Plan: Likely secondary to acute infection (3) Thrombocytosis Is this a current diagnosis for this admission?: Yes Plan: Etiology unclear, noted also in 01/2019 so not acute. Follow up as outpatient - Plan Summary Summary: Will start on empiric ceftriaxone, and follow-up with the urine cultures - Time Time Spent with patient: 25-34 minutes Medications reviewed and adjusted accordingly: Yes Anticipated discharge: Acute Rehab Within: within 48 hours - Inpatient Certification Based on my medical assessment, after consideration of the patient's comorbidities, presenting symptoms, or acuity I expect that the services needed warrant INPATIENT care.: Yes Medical Necessity: Need Close Monitoring Due to Risk of Patient Decompensation, Need for IV Antibiotics
--- NOTE | 2019-10-03 18:42 | ADVANCED CARE ---
- Diagnosis (1) UTI (urinary tract infection) Diagnosis Current: Yes (2) Metabolic encephalopathy Diagnosis Current: Yes Resuscitation Status: Do Not Resuscitate Discussion: With spouse and patient. Spouse is POA. She wants him to be a DNR Time Spent: 16 minutes
[2019-10-03] MEDS: TEMAZEPAM 7.5 MG CAPSULE PO SCH (21:18)
[2019-10-03] MEDS: GABAPENTIN 300 MG CAPSULE PO SCH (21:18)
[2019-10-03] MEDS: RINGERS SOLUTION,LACTATED 1,000 ML IV PRN (21:18)
[2019-10-03] MEDS ORDERED: INFLUENZA QUAD (6MOS+) 2019-20 VAC 0.5 ML SYR IM ONE (22:03)
[2019-10-04] MEDS: GABAPENTIN 300 MG CAPSULE PO SCH ×3 (06:01→21:23)
[2019-10-04] MEDS: RINGERS SOLUTION,LACTATED 1,000 ML IV PRN ×2 (06:02→16:04)
[2019-10-04] MEDS: ENOXAPARIN SODIUM INJ 40 MG/0.4 ML DISP.SYRIN SUBCUT SCH (09:08)
[2019-10-04] MEDS: DOCUSATE SODIUM 100 MG CAPSULE PO SCH (09:08)
[2019-10-04] MEDS ORDERED: OXCARBAZEPINE 600 MG PO SCH (10:00)
[2019-10-04] MEDS ORDERED: (PENDING PHARMACY ID) (Levetiracetam [Keppra] 1,000 MG) PO SCH (10:00)
[2019-10-04] MEDS: OXCARBAZEPINE 150 MG TABLET PO SCH ×2 (10:46→21:23)
[2019-10-04] MEDS: LEVETIRACETAM 500 MG TABLET PO SCH ×2 (10:46→21:23)
[2019-10-04] MEDS: DULOXETINE HCL 30 MG CAPSULE.DR PO SCH ×2 (10:46→21:22)
[2019-10-04] MEDS: FERROUS SULFATE 325 MG TABLET PO SCH ×3 (10:46→17:04)
--- NOTE | 2019-10-04 10:46 | EKG REPORT ---
SEVERITY:- BORDERLINE ECG - SINUS RHYTHM ATRIAL PREMATURE COMPLEX LEFT AXIS DEVIATION BORDERLINE T ABNORMALITIES, ANTERIOR LEADS : Confirmed by: Danielle Diamond 04-Oct-2019 10:44:54
[2019-10-04] MEDS: LAMOTRIGINE 100 MG TABLET PO SCH ×2 (10:47→21:23)
[2019-10-04] MEDS: CEFTRIAXONE 1 GM/D5W RTU 1 GM/50 ML RTUPB IV SCH (11:49)
--- NOTE | 2019-10-04 12:08 | PDOC PROGRESS REPORT ---
Subjective Progress Note for:: 10/04/19 Subjective:: Patient feels better today. He appears to be oriented x3 and likely at his baseline. Patient is complaining of pain in his right jaw from his trigeminal neuralgia Reason For Visit: UTI, METABOLIC ENCEPHALOPATHY Physical Exam Vital Signs: Temp Pulse Resp BP Pulse Ox 98.8 F 94 14 132/81 H 96 10/04/19 11:54 10/04/19 11:54 10/04/19 11:54 10/04/19 11:54 10/04/19 11:54 Intake & Output 10/03/19 10/04/19 10/05/19 06:59 06:59 06:59 Intake Total 923 Output Total 600 Balance 323 Weight 86.6 kg General appearance: PRESENT: no acute distress, well-developed Head exam: PRESENT: atraumatic Neck exam: PRESENT: full ROM. ABSENT: carotid bruit, JVD Respiratory exam: PRESENT: clear to auscultation veronica, unlabored Cardiovascular exam: PRESENT: RRR, +S1, +S2 GI/Abdominal exam: PRESENT: normal bowel sounds Musculoskeletal exam: PRESENT: ambulatory. ABSENT: tenderness Neurological exam: PRESENT: alert, awake, oriented to person, oriented to place, oriented to situation, other - Dysarthria Results Laboratory Results: 10/03/19 11:15 10/03/19 11:15 10/03/19 10/03/19 10/03/19 11:15 11:15 12:00 Sodium 141.6 Potassium 4.3 Chloride 101 Carbon Dioxide 31 H Anion Gap 10 BUN 14 Creatinine 1.10 Est GFR ( Amer) > 60 Glucose 102 Calcium 9.2 Magnesium 2.5 H Total Bilirubin 0.5 AST 18 Alkaline Phosphatase 112 Total Protein 7.3 Albumin 4.2 TSH 1.29 Urine Color DARK YELLOW Urine Appearance CLOUDY Urine pH 6.0 Ur Specific [place] 1.025 Urine Protein 100 H Urine Glucose (UA) NEGATIVE Urine Ketones NEGATIVE Urine Blood SMALL H Urine Nitrite POSITIVE H Ur Leukocyte Esterase LARGE H Urine WBC (Auto) >182 10/03/19 11:15 Troponin I < 0.012 Impressions: Chest X-Ray 10/03/19 11:29 IMPRESSION: NO ACUTE RADIOGRAPHIC FINDING IN THE CHEST. Head CT 10/03/19 11:30 IMPRESSION: 1. No acute intracranial hemorrhage, mass, or evidence of acute territorial infarct. 2. Mild chronic small vessel ischemic change. 3. Moderate cerebral and cerebellar atrophy. 4. Intracranial atherosclerosis. EVIDENCE OF ACUTE STROKE: NO. Assessment and Plan - Diagnosis (1) UTI (urinary tract infection) Qualifiers: Urinary tract infection type: acute cystitis Is this a current diagnosis for this admission?: Yes Plan: Cont Ceftriaxone and adjust as per culture result (2) Metabolic encephalopathy Is this a current diagnosis for this admission?: Yes (3) Thrombocytosis Is this a current diagnosis for this admission?: Yes Plan: Etiology unclear, noted also in 01/2019 so not acute. Follow up as outpatient (4) Trigeminal neuralgia of right side of face Is this a current diagnosis for this admission?: Yes Plan: This is chronic with underlying pain, chronic pain with opioid use - Plan Summary Summary: Continue ceftriaxone, and follow-up with the urine cultures
[2019-10-04] MEDS: MORPHINE SULFATE SR 15 MG TABLET PO PRN (12:27)
[2019-10-04] MEDS: TEMAZEPAM 7.5 MG CAPSULE PO SCH (21:23)
[2019-10-05] MEDS: RINGERS SOLUTION,LACTATED 1,000 ML IV PRN (04:07)
[2019-10-05] MEDS: GABAPENTIN 300 MG CAPSULE PO SCH ×2 (05:48→13:18)
[2019-10-05] MEDS: ENOXAPARIN SODIUM INJ 40 MG/0.4 ML DISP.SYRIN SUBCUT SCH (09:05)
[2019-10-05] MEDS: DULOXETINE HCL 30 MG CAPSULE.DR PO SCH (09:05)
[2019-10-05] MEDS: FERROUS SULFATE 325 MG TABLET PO SCH ×2 (09:06→13:18)
[2019-10-05] MEDS: DOCUSATE SODIUM 100 MG CAPSULE PO SCH (09:06)
[2019-10-05] MEDS: OXCARBAZEPINE 150 MG TABLET PO SCH (09:06)
[2019-10-05] MEDS: LEVETIRACETAM 500 MG TABLET PO SCH (09:06)
[2019-10-05] MEDS: LAMOTRIGINE 100 MG TABLET PO SCH (09:07)
[2019-10-05] MEDS: MORPHINE SULFATE SR 15 MG TABLET PO PRN (09:52)
[2019-10-05] MEDS: CEFTRIAXONE 1 GM/D5W RTU 1 GM/50 ML RTUPB IV SCH (11:30)
[2019-10-05 13:43] VITALS: BP 135/64
--- NOTE | 2019-10-05 14:12 | PDOC DISCHARGE SUMMARY ---
Impression - Admit/DC Date/PCP Admission Date/Primary Care Provider: 10/03/19 16:33 [facility] Discharge Date: 10/05/19 - Discharge Diagnosis (1) UTI (urinary tract infection) Is this a current diagnosis for this admission?: Yes (2) Metabolic encephalopathy Is this a current diagnosis for this admission?: Yes (3) Thrombocytosis Is this a current diagnosis for this admission?: Yes (4) Trigeminal neuralgia of right side of face Is this a current diagnosis for this admission?: Yes (5) Chronic pain Is this a current diagnosis for this admission?: Yes (6) Opiate dependence Is this a current diagnosis for this admission?: Yes (7) Unsteady gait Is this a current diagnosis for this admission?: Yes - Assessment Summary: Continue ceftriaxone, and follow-up with the urine cultures - Additional Information Resuscitation Status: Do Not Resuscitate Discharge Diet: As Tolerated Discharge Activity: Activity As Tolerated Referrals: [facility] [Primary [facility]] - Follow up as needed Prescriptions: Cephalexin Monohydrate [Keflex 500 mg Capsule] 500 mg PO QID #10 capsule Home Medications: Duloxetine HCl [Cymbalta] 60 mg PO Q12 10/04/19 Ferrous Sulfate [Feosol 325 mg Tablet] 324 mg PO TID 10/04/19 Gabapentin [Neurontin] 600 mg PO Q6 10/04/19 Lamotrigine [Lamictal 100 mg Tablet] 200 mg PO Q12 10/04/19 Levetiracetam [Keppra] 1,000 mg PO BID 10/04/19 Oxcarbazepine 600 mg PO BID 10/04/19 Cephalexin Monohydrate [Keflex 500 mg Capsule] 500 mg PO QID #10 capsule 10/05/19 History of Present Illiness History of Present Illness: ANJALI LAUGHLIN is a 69 year old male He was found to have a urinary tract infection in the emergency room and so has been admitted for further management. Patient it appears as had some ongoing neurological issues. He is apparently disabled from trigeminal neuralgia and is followed by neurology at [facility] however this appears to be stable. His main issue is the confusion which could be secondary to the acute cystitis. Work-up in the emergency room is essentially negative except for the urinalysis. He did have a thrombocytosis with a platelet count of 5 48,000. His platelet count was 5 13,000 in January 2019. This will need outpatient follow-up. His electrolytes are grossly intact Hospital Course Hospital Course: Patient mental status improved rapidly while in hospital. He was found to have a urinary tract infection and this was thought to be responsible for his encephalopathy. Patient was started on intravenous ceftriaxone which he received for 3 days while in hospital. Unfortunately culture did not yield any organism. Patient appears to be back at his baseline. He has been hemodynamically stable. He was continued on his home medications. He was seen by physical therapy and was felt that he would benefit from home PT as well as assistance with ambulation and as such is being discharged home with home health. At this time with no further intervention has been planned with patient being hemodynamically stable he has been discharged home for outpatient follow- up. Will suggest follow-up CBC to ensure that his platelet count has reverted back to normal. Physical Exam Vital Signs: Temp Pulse Resp BP Pulse Ox 98.3 F 79 20 135/64 H 94 10/05/19 13:34 10/05/19 13:34 10/05/19 13:34 10/05/19 13:34 10/05/19 13:34 Intake & Output 10/04/19 10/05/19 10/06/19 06:59 06:59 06:59 Intake Total 923 2290 240 Output Total 600 125 Balance 323 2165 240 Weight 86.6 kg 78.2 kg General appearance: PRESENT: no acute distress, well-developed Head exam: PRESENT: atraumatic Respiratory exam: PRESENT: clear to auscultation veronica, unlabored. ABSENT: rhonchi Cardiovascular exam: PRESENT: RRR, +S1, +S2 GI/Abdominal exam: PRESENT: soft. ABSENT: tenderness Rectal exam: PRESENT: deferred Neurological exam: PRESENT: alert, awake, oriented to person, oriented to place, oriented to time, motor sensory deficit, other - dysarthria Results Laboratory Results: WBC 8.3 10^3/uL (4.0-10.5) 10/03/19 11:15 RBC 5.11 10^6/uL (4.35-5.55) 10/03/19 11:15 Hgb 15.9 g/dL (13.5-17.0) 10/03/19 11:15 Hct 47.6 % (37.9-51.0) 10/03/19 11:15 MCV 93 fl (80-97) 10/03/19 11:15 MCH 31.2 pg (27.0-33.4) 10/03/19 11:15 MCHC 33.4 g/dL (32.0-36.0) 10/03/19 11:15 RDW 13.8 % (11.5-14.0) 10/03/19 11:15 Plt Count 548 10^3/uL (150-450) H 10/03/19 11:15 Lymph % (Auto) 23.4 % (13-45) 10/03/19 11:15 [place] % (Auto) 7.7 % (3-13) 10/03/19 11:15 Eos % (Auto) 2.3 % (0-6) 10/03/19 11:15 Baso % (Auto) 0.7 % (0-2) 10/03/19 11:15 Absolute Neuts (auto) 5.4 10^3/uL (1.7-8.2) 10/03/19 11:15 Absolute Lymphs (auto) 1.9 10^3/uL (0.5-4.7) 10/03/19 11:15 Absolute Monos (auto) 0.6 10^3/uL (0.1-1.4) 10/03/19 11:15 Absolute Eos (auto) 0.2 10^3/uL (0.0-0.6) 10/03/19 11:15 Absolute Basos (auto) 0.1 10^3/uL (0.0-0.2) 10/03/19 11:15 Seg Neutrophils % 65.9 % (42-78) 10/03/19 11:15 Sodium 141.6 mmol/L (137-145) 10/03/19 11:15 Potassium 4.3 mmol/L (3.6-5.0) 10/03/19 11:15 Chloride 101 mmol/L (98-107) 10/03/19 11:15 Carbon Dioxide 31 mmol/L (22-30) H 10/03/19 11:15 Anion Gap 10 (5-19) 10/03/19 11:15 BUN 14 mg/dL (7-20) 10/03/19 11:15 Creatinine 1.10 mg/dL (0.52-1.25) 10/03/19 11:15 Est GFR ( Amer) > 60 (>60) 10/03/19 11:15 Est GFR (MDRD) Non-Af > 60 (>60) 10/03/19 11:15 Glucose 102 mg/dL (75-110) 10/03/19 11:15 Calcium 9.2 mg/dL (8.4-10.2) 10/03/19 11:15 Magnesium 2.5 mg/dL (1.6-2.3) H 10/03/19 11:15 Total Bilirubin 0.5 mg/dL (0.2-1.3) 10/03/19 11:15 Direct Bilirubin 0.2 mg/dL (0.0-0.4) 10/03/19 11:15 Neonat Total Bilirubin Not Reportable 10/03/19 11:15 Neonat Direct Bilirubin Not Reportable 10/03/19 11:15 Neonat Indirect Bili Not Reportable 10/03/19 11:15 AST 18 U/L (17-59) 10/03/19 11:15 ALT 12 U/L (<50) 10/03/19 11:15 Alkaline Phosphatase 112 U/L (38-126) 10/03/19 11:15 Troponin I < 0.012 ng/mL 10/03/19 11:15 Total Protein 7.3 g/dL (6.3-8.2) 10/03/19 11:15 Albumin 4.2 g/dL (3.5-5.0) 10/03/19 11:15 TSH 1.29 uIU/mL (0.47-4.68) 10/03/19 11:15 Urine Color DARK YELLOW 10/03/19 12:00 Urine Appearance CLOUDY 10/03/19 12:00 Urine pH 6.0 (5.0-9.0) 10/03/19 12:00 Ur Specific [place] 1.025 10/03/19 12:00 Urine Protein 100 mg/dL (NEGATIVE) H 10/03/19 12:00 Urine Glucose (UA) NEGATIVE mg/dL (NEGATIVE) 10/03/19 12:00 Urine Ketones NEGATIVE mg/dL (NEGATIVE) 10/03/19 12:00 Urine Blood SMALL (NEGATIVE) H 10/03/19 12:00 Urine Nitrite POSITIVE (NEGATIVE) H 10/03/19 12:00 Urine Bilirubin NEGATIVE (NEGATIVE) 10/03/19 12:00 Urine Urobilinogen NEGATIVE mg/dL (<2.0) 10/03/19 12:00 Ur Leukocyte Esterase LARGE (NEGATIVE) H 10/03/19 12:00 Urine WBC (Auto) >182 /HPF 10/03/19 12:00 Urine WBC Clumps MANY /HPF 10/03/19 12:00 Squamous Epi Cells Auto 1 /HPF 10/03/19 12:00 U Non-Squamous Epis Auto 1 /HPF 10/03/19 12:00 Urine Ascorbic Acid NEGATIVE (NEGATIVE) 10/03/19 12:00 10/03/19 11:15 Troponin I < 0.012 Impressions: Chest X-Ray 10/03/19 11:29 IMPRESSION: NO ACUTE RADIOGRAPHIC FINDING IN THE CHEST. Head CT 10/03/19 11:30 IMPRESSION: 1. No acute intracranial hemorrhage, mass, or evidence of acute territorial infarct. 2. Mild chronic small vessel ischemic change. 3. Moderate cerebral and cerebellar atrophy. 4. Intracranial atherosclerosis. EVIDENCE OF ACUTE STROKE: NO. Plan Time Spent: Less than 30 Minutes Stroke Is this a Stroke Patient?: No Acute Heart Failure - Is this a Heart Failure Patient?: No
== END 2019-10-05 14:26 | disposition home health service (06) | DRG 689 ==
LOC: ER 11:04 → EH 16:33 → 4N 21:10
PROVIDERS: ADMIT Internal Medicine; ATTEND Internal Medicine
DX: N39.0 Urinary tract infection, site not specified (principal); G93.41 Metabolic encephalopathy; F11.20 Opioid dependence, uncomplicated; G50.0 Trigeminal neuralgia; E78.5 Hyperlipidemia, unspecified; Z66 Do not resuscitate; D47.3 Essential (hemorrhagic) thrombocythemia; Z23 Encounter for immunization; G89.29 Other chronic pain; R26.81 Unsteadiness on feet; F17.210 Nicotine dependence, cigarettes, uncomplicated
CPT/HCPCS: 36415; 70450; 71045; 80053; 81001; 83735; 84443; 84484; 85025; 87040; 90686; 93005; 93010; 96365; 99285; J0696; J1650; J3490; J7120